=== PATIENT | female | born 1945 | race Two or more races ===

== ENCOUNTER → 2017-04-20 | Outpatient (CLI) | payer OTHER | END | disposition home or self-care (01) | LOC: RAD 11:16 | DX: J32.9 Chronic sinusitis, unspecified (principal) ==

== ENCOUNTER 2019-11-16 08:26 | Outpatient (CLI) | payer OTHER | END 2019-11-16 08:36 | disposition home or self-care (01) | LOC: TOM 08:26 | PROVIDERS: ATTEND Internal Medicine | DX: K56.50 Intestinal adhesions [bands], unspecified as to partial versus complete obstruction (principal); K59.01 Slow transit constipation ==

== ENCOUNTER 2019-11-28 09:55 | Outpatient (CLI) | payer OTHER | END 2019-11-28 09:57 | disposition home or self-care (01) | LOC: SONOGRAMA 09:55 | PROVIDERS: ATTEND Obstetrics & Gynecology | DX: R10.2 Pelvic and perineal pain (principal); Z12.31 Encounter for screening mammogram for malignant neoplasm of breast; N60.11 Diffuse cystic mastopathy of right breast; N60.12 Diffuse cystic mastopathy of left breast ==

== ENCOUNTER 2020-08-22 12:56 | Outpatient (CLI) | payer OTHER | END 2020-08-22 12:58 | disposition home or self-care (01) | LOC: NUCLEAR 12:56 | PROVIDERS: ATTEND Family Medicine | DX: Z13.820 Encounter for screening for osteoporosis (principal); M81.0 Age-related osteoporosis without current pathological fracture ==

== ENCOUNTER 2021-02-11 08:37 | Outpatient (CLI) | payer OTHER | END 2021-02-11 08:44 | disposition home or self-care (01) | LOC: EMR ICU 08:37 → SONOGRAMA 08:37 → EMR ICU 08:44 | PROVIDERS: ATTEND Obstetrics & Gynecology Gynecology | DX: N85.02 Endometrial intraepithelial neoplasia [EIN] (principal) ==

== ENCOUNTER 2021-09-28 12:00 | Outpatient (CLI) | payer OTHER | END 2021-09-28 12:08 | disposition home or self-care (01) | LOC: SONOGRAMA 12:00 | PROVIDERS: ATTEND Internal Medicine Endocrinology, Diabetes & Metabolism | DX: E04.1 Nontoxic single thyroid nodule (principal); I88.9 Nonspecific lymphadenitis, unspecified ==

== ENCOUNTER 2021-10-09 09:03 | Outpatient (CLI) | payer OTHER | END 2021-10-09 09:04 | disposition home or self-care (01) | LOC: NUCLEAR 09:03 | PROVIDERS: ATTEND Family Medicine | DX: R53.83 Other fatigue (principal); R06.00 Dyspnea, unspecified ==

== ENCOUNTER → 2021-10-28 | Outpatient (CLI) | payer OTHER | END | disposition home or self-care (01) | LOC: TOM 08:40 | PROVIDERS: ATTEND Internal Medicine Hematology & Oncology | DX: C80.1 Malignant (primary) neoplasm, unspecified (principal); R63.4 Abnormal weight loss; Z80.3 Family history of malignant neoplasm of breast | CPT/HCPCS: 74177; Q9965 ==

== ENCOUNTER 2022-04-12 12:26 | Outpatient (CLI) | payer OTHER | END 2022-04-12 12:31 | disposition home or self-care (01) | LOC: SONOGRAMA 12:26 | PROVIDERS: ATTEND Internal Medicine Endocrinology, Diabetes & Metabolism | DX: E04.1 Nontoxic single thyroid nodule (principal) ==

== ENCOUNTER 2022-09-24 10:52 | Outpatient (CLI) | payer OTHER | END 2022-09-24 10:57 | disposition home or self-care (01) | LOC: RAD 10:52 | PROVIDERS: ATTEND Family Medicine | DX: R05.8 Other specified cough (principal); I70.0 Atherosclerosis of aorta ==

== ENCOUNTER 2022-12-10 07:32 | Outpatient (CLI) | payer OTHER | END 2022-12-10 07:34 | disposition home or self-care (01) | LOC: NUCLEAR 07:32 | PROVIDERS: ATTEND Internal Medicine | DX: Z13.6 Encounter for screening for cardiovascular disorders (principal); R00.1 Bradycardia, unspecified; R06.00 Dyspnea, unspecified | CPT/HCPCS: 78452; 93017; A9500; J0153 ==